=== PATIENT | male | born 1955 ===

== ENCOUNTER → 2017-12-10 10:49 | Outpatient (CLI) | payer SELFPAY ==
[2017-12-10 11:20] LABS: INR 2.18 (0.9-1.1); Prothrombin Time 23.7 seconds (9.4-11.8)
== END ==
PROVIDERS: Visit Provider Internal Medicine
DX: Z79.01 Long term (current) use of anticoagulants (principal); Z51.81 Encounter for therapeutic drug level monitoring; Z95.2 Presence of prosthetic heart valve; I10 Essential (primary) hypertension; E11.9 Type 2 diabetes mellitus without complications; A49.02 Methicillin resistant Staphylococcus aureus infection, unspecified site
CPT/HCPCS: 36415; 85610